=== PATIENT | female | born 1955 | race African-American/Black ===

== ENCOUNTER 2021-08-11 08:32 | Emergency (ER) | payer MEDICARE, OTHER ==
[~2021-08-11] VITALS: Ht 157.4 cm; Wt 113.3 kg
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
--- NOTE | 2021-08-11 08:47 | ED Cough/URI ---
General Chief Complaint: Respiratory Problems Stated Complaint: COUGH; SOB History of Present Illness Date Seen by Provider: Aug 11, 2021 Time Seen by Provider: 08:43 Initial Comments 66-year-old female presents with cough and "wheezing" patient reports that she is currently being treated for a longstanding sinus infection, she has been seen in ENT and they wanted to ask growth of her sinuses. That she is currently on antibiotics due to this longstanding sinus infection. Patient presents today because she has developed a little bit of cough and some upper airway congestion and "wheezing" no increasing shortness of breath. No change in fevers, chills, nausea or vomiting. Allergies and Home Medications Allergies Coded Allergies: Sulfa (Sulfonamide Antibiotics) (Verified Allergy, Unknown, 08/11/21) cefdinir (Verified Allergy, Unknown, 08/11/21) codeine (Verified Allergy, Unknown, 08/11/21) lactose (Verified Allergy, Unknown, 08/11/21) triamcinolone (Verified Allergy, Unknown, 08/11/21) Patient Home Medication List Home Medication List Reviewed: Yes Review of Systems Review of Systems Constitutional: see HPI; No chills, No fever EENTM: see HPI Respiratory: cough, phlegm; No short of breath; wheezing Cardiovascular: No chest pain, No palpitations Gastrointestinal: No abdominal pain, No diarrhea, No nausea, No vomiting Musculoskeletal: no symptoms reported Skin: no symptoms reported Psychiatric/Neurological: No Symptoms Reported Hematologic/Lymphatic: No Symptoms Reported Immunological/Allergic: no symptoms reported Physical Exam Vital Signs - First Documented 08/11/21 08:35 Temp 36.2 Pulse 90 Resp 20 B/P (MAP) 175/112 (133) Pulse Ox 94 O2 Delivery Room Air Capillary Refill : Height: '" Weight: lbs. oz. kg; BMI Method: General Appearance: obese HEENT: PERRL/EOMI Neck: full range of motion, supple Respiratory: lungs clear, normal breath sounds Cardiovascular: regular rate, rhythm, no edema Gastrointestinal: non tender, soft Extremities: normal range of motion, non-tender, normal inspection Neurologic/Psychiatric: alert, normal mood/affect, oriented x 3 Skin: normal color, warm/dry Progress/Results/Core Measures Suspected Sepsis SIRS Temperature: Pulse: Respiratory Rate: Laboratory Tests 08/11/21 09:00: White Blood Count 7.1 Blood Pressure / Mean: Laboratory Tests 08/11/21 09:00: Creatinine 1.10, Platelet Count 156, Total Bilirubin 0.9 Results/Orders Lab Results Laboratory Tests Test 08/11/21 08:45 08/11/21 09:00 Range/Units Influenza Type A Antigen NEGATIVE NEGATIVE Influenza Type B Antigen NEGATIVE NEGATIVE White Blood Count 7.1 4.3-11.0 10^3/uL Red Blood Count 4.09 3.80-5.11 10^6/uL Hemoglobin 12.6 11.5-16.0 g/dL Hematocrit 37 35-52 % Mean Corpuscular Volume 91 80-99 fL Mean Corpuscular Hemoglobin 31 25-34 pg Mean Corpuscular Hemoglobin Concent 34 32-36 g/dL Red Cell Distribution Width 13.2 10.0-14.5 % Platelet Count 156 130-400 10^3/uL Mean Platelet Volume 12.3 H 9.0-12.2 fL Immature Granulocyte % (Auto) 0 % Neutrophils (%) (Auto) 56 42-75 % Lymphocytes (%) (Auto) 30 12-44 % Monocytes (%) (Auto) 9 0-12 % Eosinophils (%) (Auto) 4 0-10 % Basophils (%) (Auto) 0 0-10 % Neutrophils # (Auto) 4.0 1.8-7.8 X 10^3 Lymphocytes # (Auto) 2.2 1.0-4.0 X 10^3 Monocytes # (Auto) 0.6 0.0-1.0 X 10^3 Eosinophils # (Auto) 0.3 0.0-0.3 10^3/uL Basophils # (Auto) 0.0 0.0-0.1 10^3/uL Immature Granulocyte # (Auto) 0.0 0.0-0.1 10^3/uL Sodium Level 140 135-145 MMOL/L Potassium Level 4.4 3.6-5.0 MMOL/L Chloride Level 104 98-107 MMOL/L Carbon Dioxide Level 26 21-32 MMOL/L Anion Gap 10 5-14 MMOL/L Blood Urea Nitrogen 15 7-18 MG/DL Creatinine 1.10 0.60-1.30 MG/DL Estimat Glomerular Filtration Rate 60 BUN/Creatinine Ratio 14 Glucose Level 176 H 70-105 MG/DL Calcium Level 9.3 8.5-10.1 MG/DL Corrected Calcium 9.5 8.5-10.1 MG/DL Total Bilirubin 0.9 0.1-1.0 MG/DL Aspartate Amino Transf (AST/SGOT) 21 5-34 U/L Alanine Aminotransferase (ALT/SGPT) 23 0-55 U/L Alkaline Phosphatase 129 40-136 U/L Total Protein 7.3 6.4-8.2 GM/DL Albumin 3.8 3.2-4.5 GM/DL My Orders Orders - BROCK BUSTILLOS Juliano DO Cbc With Automated Diff (08/11/21 08:45) Comprehensive Metabolic Panel (08/11/21 08:45) Covid 19 Inhouse Test (08/11/21 08:45) Influenza A & B Antigens (08/11/21 08:45) Isolation Central Supply Req (08/11/21 08:45) Chest 1 View Ap/Pa Only (08/11/21 08:45) Chest Pa/Lat (2 View) (08/11/21 09:19) Albuterol/Ipra Inhalation Soln (Duoneb I (08/11/21 09:45) Svn Small Volume Nebulizer (08/11/21 09:35) Medications Given in ED Current Medications Medications Dose Ordered Sig/Geoff Route Start Time Stop Time Status Last Admin Dose Admin Albuterol/ Ipratropium 3 ml ONCE ONCE INH 08/11/21 09:45 08/11/21 09:46 DC 08/11/21 09:53 3 ML Vital Signs/I&O 08/11/21 08:35 Temp 36.2 Pulse 90 Resp 20 B/P (MAP) 175/112 (133) Pulse Ox 94 O2 Delivery Room Air Capillary Refill : Progress Note : Progress Note Patient x-ray shows may be early bilateral patchy infiltrate. Patient's main complaint is nasal congestion. Her Covid test is currently pending. Her oxygen remained in the mid upper 90s throughout her stay. I discussed with her zjmi-kbk-aizllnf remedies to help with her congestion including Afrin for a couple days, trying Arlet, Breathe Right nasal strips. She is currently on Augmentin for her sinus infection so her symptoms are likely viral in nature. I also recommended she try [place] pot or similar nasal rinse. Patient stable and discharged home Diagnostic Imaging Diagonstic Imaging: Xray Plain Films/CT/US/NM/MRI: chest Comments Date of Exam:08/11/21 CHEST PA/LAT (2 VIEW) INDICATION: Cough. PA and lateral views were obtained. Comparison is made with prior examination from earlier the same day. FINDINGS: The heart size is normal. There are patchy bilateral pulmonary infiltrates. There is no pleural effusion or pneumothorax. The mediastinum is unremarkable. IMPRESSION: Patchy bilateral pulmonary infiltrates. An early pneumonia cannot be excluded. Recommend clinical correlation. Reviewed: Reviewed by Me, Reviewed/Discussed Departure Impression Primary Impression: Nasal congestion Additional Impression: Viral syndrome Disposition: HOME, SELF-CARE Condition: Stable Departure-Patient Inst. Referrals: DERRICK ROBERTSON DO (PCP) Primary Care Physician Patient Instructions: DR. CASTILLO-NASAL IRRIGATION, Sinusitis in Adults, Viral Syndrome (DC) Add. Discharge Instructions: Afrin nasal spray twice daily for 2 to 3 days Breathe Right nasal strips at night to help you sleep You have been provided information on Dr. Castillo sinus irrigation protocol, you may use a [place] pot or follow his recommendations. Continue your current antibiotics Yurx-flf-wkwpola Mucinex as directed on package Follow-up with your primary care provider in 3 to 4 days if symptoms are not improved All discharge instructions reviewed with patient and/or family. Voiced understanding. BROCK BUSTILLOS DO Aug 11, 2021 08:47
--- NOTE | 2021-08-11 09:01 | Diagnostic Imaging Report ---
INDICATION: Dyspnea and cough Portable AP view of the chest is obtained. There is no previous study for comparison. Overall heart size and pulmonary vascularity are within normal limits. There is apparent tortuosity or ectasia of the descending thoracic aorta. There is mild atelectasis and/or scarring in the left lung base. Focal density in the right suprahilar region may be merely due to superimposed osseous structures. There is mild right convexity curvature of the thoracic spine. IMPRESSION: Slight left basilar atelectasis and/or pneumonitis with suprahilar density on the right which could be due to superimposition. These findings could be reassessed on follow-up PA and lateral views of the chest for further assessment. Dictated by: Dictated on workstation # [id number]
[2021-08-11 09:25] LABS: HEMATOCRIT 37 % (35-52); HEMOGLOBIN 12.6 g/dL (11.5-16.0); MEAN CORPUSCULAR HEMOGLOBIN 31 pg (25-34); MEAN CORPUSCULAR HGB CONC 34 g/dL (32-36); MEAN CORPUSCULAR VOLUME 91 fL (80-99); MEAN PLATELET VOLUME 12.3 fL (9.0-12.2); PLATELET COUNT 156 10^3/uL (130-400); WHITE BLOOD COUNT 7.1 10^3/uL (4.3-11.0)
[2021-08-11 09:26] LABS: BASOPHILS % (AUTO) 0 % (0-10); EOSINOPHILS # (AUTO) 0.3 10^3/uL (0.0-0.3); EOSINOPHILS % (AUTO) 4 % (0-10); LYMPHOCYTES # (AUTO) 2.2 X 10^3 (1.0-4.0); LYMPHOCYTES % (AUTO) 30 % (12-44); MONOCYTES # (AUTO) 0.6 X 10^3 (0.0-1.0); MONOCYTES % (AUTO) 9 % (0-12); NEUTROPHILS % (AUTO) 56 % (42-75)
[2021-08-11 09:43] LABS: ALBUMIN 3.8 GM/DL (3.2-4.5); BILIRUBIN,TOTAL 0.9 MG/DL (0.1-1.0); CALCIUM 9.3 MG/DL (8.5-10.1); CREATININE SERUM 1.1 MG/DL (0.60-1.30); POTASSIUM 4.4 MMOL/L (3.6-5.0); TOTAL PROTEIN 7.3 GM/DL (6.4-8.2)
[2021-08-11] MEDS ORDERED: RT-ALBUTEROL/IPRATROPIUM 3 ML (DUONEB) VIAL INH ONE (09:45)
--- NOTE | 2021-08-11 09:54 | Diagnostic Imaging Report ---
INDICATION: Cough. PA and lateral views were obtained. Comparison is made with prior examination from earlier the same day. FINDINGS: The heart size is normal. There are patchy bilateral pulmonary infiltrates. There is no pleural effusion or pneumothorax. The mediastinum is unremarkable. IMPRESSION: Patchy bilateral pulmonary infiltrates. An early pneumonia cannot be excluded. Recommend clinical correlation. Dictated by: Dictated on workstation # [id number]
[2021-08-11 10:31] VITALS: BP 152/105
== END 2021-08-11 10:31 | disposition home or self-care (01) ==
LOC: EDUNIT# 08:32 → ER FS 08:33
DX: R09.81 Nasal congestion (principal); B34.9 Viral infection, unspecified; E66.9 Obesity, unspecified; Z20.822 Contact with and (suspected) exposure to COVID-19
CPT/HCPCS: 36415; 71045; 71046; 80053; 85025; 87636; 87804

== ENCOUNTER 2021-09-05 19:18 | Emergency (ER) | payer MEDICARE, OTHER ==
[~2021-09-05] VITALS: Ht 157 cm; Wt 108.0 kg
[2021-09-05 19:25] VITALS: BP 157/86
--- NOTE | 2021-09-05 19:46 | ED Respiratory ---
General Stated Complaint: CONGESTION,NAUSEA,COUGH,FEVER,HEADACHE Source: patient Exam Limitations: no limitations History of Present Illness Date Seen by Provider: Sep 05, 2021 Time Seen by Provider: 19:20 Initial Comments 66-year-old female with past medical history of hypertension and chronic sinusitis coming in due to nasal congestion, headache, cough, subjective fever a couple days ago, and loose stools. She says the nasal congestion has been ongoing for greater than 2 months and she sees an ENT physician for this. She had a CT of her sinuses and was diagnosed with sinusitis and had a course of Augmentin that she finished a couple weeks ago. This is her main complaint is the nasal congestion. She never really has a lot that comes out when she blows her nose, just feels stuffy. She says she feels short of breath when she tries to breathe through her nose because she feels the air does not move well, but is better when she tries to breathe through her mouth. Had a negative Covid test at the end of July and has not been tested since. Does her symptoms come and go but been worsening again over the past week. Denies any chest pain, nausea, vomiting, abdominal pain, dysuria, weakness, numbness, rash, or any other concerns. Focused history in regards to a pulmonary embolism, denies any prior history of blood clots, no recent surgery, no recent travel, does not take any type of hormone, no hemoptysis, no leg swelling or pain. The only medicine she takes that is prescribed at this time is metoprolol. Allergies and Home Medications Allergies Coded Allergies: Sulfa (Sulfonamide Antibiotics) (Verified Allergy, Unknown, 08/11/21) cefdinir (Verified Allergy, Unknown, 08/11/21) codeine (Verified Allergy, Unknown, 08/11/21) lactose (Verified Allergy, Unknown, 08/11/21) triamcinolone (Verified Allergy, Unknown, 08/11/21) Patient Home Medication List Home Medication List Reviewed: Yes Review of Systems Review of Systems Constitutional: fever (subjective, last was 3 days ago) EENTM: nose congestion; No throat pain Respiratory: cough, short of breath Cardiovascular: No chest pain Gastrointestinal: No abdominal pain; diarrhea; No nausea, No vomiting Genitourinary: no symptoms reported Musculoskeletal: no symptoms reported Skin: no symptoms reported Psychiatric/Neurological: No Symptoms Reported Hematologic/Lymphatic: No Symptoms Reported Immunological/Allergic: no symptoms reported All Other Systems Reviewed Negative Unless Noted: Yes Past Qcvabwc-Hfzgiz-Wsivph Hx Patient Social History Tobacco Use?: No Substance use?: No Alcohol Use?: No Immunizations Up To Date First/Initial COVID19 Vaccinat: 12/12/20 Second COVID19 Vaccination Skinny: 01/19/21 Past Medical History Surgery/Hospitalization HX: HTN; Arthritis; ; Cyst removed from right ear; arthroscopy; Seasonal allergies Surgeries: Yes Section Physical Exam Vital Signs - First Documented 09/05/21 19:25 Temp 36.8 Pulse 107 Resp 26 B/P (MAP) 157/86 (109) Pulse Ox 98 O2 Delivery Room Air Capillary Refill : Height: '" Weight: lbs. oz. kg; 45.00 BMI Method: General Appearance: WD/WN, no apparent distress Eyes: Bilateral Eye Normal Inspection HEENT: PERRL/EOMI, normal ENT inspection, pharynx normal Neck: non-tender, full range of motion, supple, normal inspection Respiratory: chest non-tender, lungs clear, normal breath sounds, no respiratory distress, no accessory muscle use Cardiovascular: regular rate, rhythm, no edema, no murmur Gastrointestinal: normal bowel sounds, non tender, soft; No distended, No guarding, No rebound Extremities: normal range of motion, non-tender, normal inspection, no pedal edema, no calf tenderness, normal capillary refill Neurologic/Psychiatric: no motor/sensory deficits, alert, normal mood/affect Skin: normal color, warm/dry Lymphatic: no adenopathy Progress/Results/Core Measures Suspected Sepsis SIRS Temperature: Pulse: Respiratory Rate: Laboratory Tests 09/05/21 19:45: White Blood Count 7.4 Blood Pressure / Mean: Laboratory Tests 09/05/21 19:45: Creatinine 1.15, Platelet Count 183, Total Bilirubin 0.8 Results/Orders Lab Results Laboratory Tests Test 09/05/21 19:40 09/05/21 19:45 Range/Units Influenza Type A Antigen NEGATIVE NEGATIVE Influenza Type B Antigen NEGATIVE NEGATIVE White Blood Count 7.4 4.3-11.0 10^3/uL Red Blood Count 4.12 3.80-5.11 10^6/uL Hemoglobin 12.8 11.5-16.0 g/dL Hematocrit 38 35-52 % Mean Corpuscular Volume 92 80-99 fL Mean Corpuscular Hemoglobin 31 25-34 pg Mean Corpuscular Hemoglobin Concent 34 32-36 g/dL Red Cell Distribution Width 13.5 10.0-14.5 % Platelet Count 183 130-400 10^3/uL Mean Platelet Volume 12.3 H 9.0-12.2 fL Immature Granulocyte % (Auto) 0 % Neutrophils (%) (Auto) 72 42-75 % Lymphocytes (%) (Auto) 21 12-44 % Monocytes (%) (Auto) 7 0-12 % Eosinophils (%) (Auto) 0 0-10 % Basophils (%) (Auto) 0 0-10 % Neutrophils # (Auto) 5.3 1.8-7.8 X 10^3 Lymphocytes # (Auto) 1.5 1.0-4.0 X 10^3 Monocytes # (Auto) 0.5 0.0-1.0 X 10^3 Eosinophils # (Auto) 0.0 0.0-0.3 10^3/uL Basophils # (Auto) 0.0 0.0-0.1 10^3/uL Immature Granulocyte # (Auto) 0.0 0.0-0.1 10^3/uL Neutrophils % (Manual) 74 % Lymphocytes % (Manual) 17 % Monocytes % (Manual) 8 % Eosinophils % (Manual) 0 % Basophils % (Manual) 1 % Band Neutrophils 0 % Sodium Level 139 135-145 MMOL/L Potassium Level 4.2 3.6-5.0 MMOL/L Chloride Level 102 98-107 MMOL/L Carbon Dioxide Level 25 21-32 MMOL/L Anion Gap 12 5-14 MMOL/L Blood Urea Nitrogen 16 7-18 MG/DL Creatinine 1.15 0.60-1.30 MG/DL Estimat Glomerular Filtration Rate 52 BUN/Creatinine Ratio 14 Glucose Level 140 H 70-105 MG/DL Calcium Level 9.6 8.5-10.1 MG/DL Corrected Calcium 9.5 8.5-10.1 MG/DL Total Bilirubin 0.8 0.1-1.0 MG/DL Aspartate Amino Transf (AST/SGOT) 21 5-34 U/L Alanine Aminotransferase (ALT/SGPT) 26 0-55 U/L Alkaline Phosphatase 131 40-136 U/L Troponin I < 0.30 <0.30 NG/ML Pro-B-Type Natriuretic Peptide 63.5 <75.0 PG/ML Total Protein 7.2 6.4-8.2 GM/DL Albumin 4.1 3.2-4.5 GM/DL My Orders Orders - JOSIE GERARD MD Cbc With Automated Diff (09/05/21 19:38) Comprehensive Metabolic Panel (09/05/21 19:38) Probnp Fs (09/05/21 19:38) Troponin I Fs (09/05/21 19:38) Influenza A & B Antigens (09/05/21 19:38) Chest 1 View Ap/Pa Only (09/05/21 19:38) Ed Iv/Invasive Line Start (09/05/21 19:38) Ekg Tracing (09/05/21 19:38) Covid 19 Inhouse Test (09/05/21 19:38) Manual Differential (09/05/21 19:45) Vital Signs/I&O 09/05/21 09/05/21 09/05/21 19:25 20:04 20:16 Temp 36.8 Pulse 107 97 Resp 26 20 B/P (MAP) 157/86 (109) 171/92 Pulse Ox 98 98 O2 Delivery Room Air Room Air Capillary Refill : Progress Note : Progress Note 66-year-old female with above history coming in mostly due to nasal congestion and other URI-like symptoms. ABCs were intact and vitals were stable on presentation. Physical exam with clear lung sounds and oxygen saturation greater than 98%. An IV was placed and basic labs were obtained including cardiac biomarkers due to the shortness of breath she is describing. Troponin is undetectable, proBNP is normal, and other labs are essentially unremarkable. Chest x-ray is clear with no acute abnormalities. EKG without acute ischemic changes. At this point it is unlikely that this is an atypical ACS causing her shortness of breath. The chronic congestion could be a chronic sinusitis, and she already follows with an ENT physician for this. I will recommend she continue to follow with him. No clinical signs of bacterial sinus infection at this time so we will hold off on antibiotics. Flu testing is negative and Covid testing is pending. Overall she is well-appearing and vitals remain well-appearing with frequent reassessment. I believe she is stable for discharge with strict return precautions. ECG Initial ECG Impression Date: Sep 05, 2021 Initial ECG Impression Time: 19:49 Initial ECG Rate: 103 Initial ECG Rhythm: S.Tach Comment Narrow QRS, borderline left axis deviation, no significant ST changes or T wave abnormalities Diagnostic Imaging Diagonstic Imaging: Xray Plain Films/CT/US/NM/MRI: chest Comments [facility] [place], [place] NAME: ONEIL FARRELL [facility] REC#: [id number] PT STATUS: REG ER : 1955 PHYSICIAN: JOSIE GERARD MD ADMIT DATE: 09/05/21/ER FS Draft Date of Exam:09/05/21 CHEST 1 VIEW AP/PA ONLY INDICATION: Shortness of breath COMPARISON: 08/11/2021 FINDINGS: Patchy bilateral pulmonary infiltrates are less conspicuous than on prior. There has been no adverse development. No effusion or pneumothorax. IMPRESSION: Improvements in bilateral infiltrates with no adverse change. Dictated on workstation # [id number] Dict: 09/05/211955 Trans: 09/05/212020 [facility] [id number] Interpreted by: HETAL BORJA Electronically signed by: Departure Impression Primary Impression: Nasal congestion Additional Impression: URI (upper respiratory infection) Qualified Codes: J06.9 - Acute upper respiratory infection, unspecified Disposition: HOME, SELF-CARE Condition: Stable Departure-Patient Inst. Decision time for Depature: 20:40 Referrals: DERRICK ROBERTSON DO (PCP/Family) Primary Care Physician Patient Instructions: Viral Upper Respiratory Infection, Adult (DC) Add. Discharge Instructions: You were seen in the emergency department for your congestion with your other viral-like symptoms. You likely do have some type of virus that is causing this. Your flu test is negative, Covid test is pending. It likely is one of the many viruses that are spreading right now. You can try Flonase nasal spray which is slightly different than the Nasacort that you used previously. That is the biggest recommendation by ENT surgeons for sinus congestion. Your Covid test will come back likely tomorrow, but I suspect it is negative. I recommend trying saline rinses as well in your nose to try to clear it up. Scripts Fluticasone Propionate (Flonase Allergy Relief) 9.9 Ml [place].susp 2 SPRAY NS DAILY for 30 Days, #1 EACH 2 SPRAYS PER NOSTRIL DAILY X 2 DAYS THEN 1 SPRAY DAILY Prov: JOSIE GERARD MD 09/05/21 JOSIE GERARD MD Sep 05, 2021 19:45
[2021-09-05 19:58] LABS: HEMATOCRIT 38 % (35-52); HEMOGLOBIN 12.8 g/dL (11.5-16.0); MEAN CORPUSCULAR HEMOGLOBIN 31 pg (25-34); MEAN CORPUSCULAR VOLUME 92 fL (80-99)
[2021-09-05 19:59] LABS: BASOPHILS % (AUTO) 0 % (0-10); LYMPHOCYTES # (AUTO) 1.5 X 10^3 (1.0-4.0); MEAN CORPUSCULAR HGB CONC 34 g/dL (32-36); MONOCYTES # (AUTO) 0.5 X 10^3 (0.0-1.0); MONOCYTES % (AUTO) 7 % (0-12)
[2021-09-05 20:20] LABS: BAND NEUTROPHILS 0 %; BASOPHILS % (MANUAL) 1 %; EOSINOPHILS % (MANUAL) 0 %; LYMPHOCYTES % (MANUAL) 17 %; MONOCYTES % (MANUAL) 8 %; NEUTROPHILS % (MANUAL) 74 %
[2021-09-05 20:21] LABS: WHITE BLOOD COUNT 7.4 10^3/uL (4.3-11.0)
--- NOTE | 2021-09-05 20:21 | Diagnostic Imaging Report ---
INDICATION: Shortness of breath COMPARISON: 08/11/2021 FINDINGS: Patchy bilateral pulmonary infiltrates are less conspicuous than on prior. There has been no adverse development. No effusion or pneumothorax. IMPRESSION: Improvements in bilateral infiltrates with no adverse change. Dictated by: Dictated on workstation # [id number]
[2021-09-05 20:22] LABS: MEAN PLATELET VOLUME 12.3 fL (9.0-12.2); PLATELET COUNT 183 10^3/uL (130-400)
[2021-09-05 20:23] LABS: EOSINOPHILS % (AUTO) 0 % (0-10); LYMPHOCYTES % (AUTO) 21 % (12-44); NEUTROPHILS % (AUTO) 72 % (42-75)
[2021-09-05 20:24] LABS: NEUTROPHILS # (AUTO) 5.3 X 10^3 (1.8-7.8)
[2021-09-05 20:25] LABS: SODIUM 139 MMOL/L (135-145)
[2021-09-05 20:26] LABS: ALANINE AMINOTRANSFERASE 26 U/L (0-55); ALBUMIN 4.1 GM/DL (3.2-4.5); ALKALINE PHOSPHATASE 131 U/L (40-136); BILIRUBIN,TOTAL 0.8 MG/DL (0.1-1.0); BUN/CREATININE RATIO 14; CALCIUM 9.6 MG/DL (8.5-10.1); CARBON DIOXIDE 25 MMOL/L (21-32); CHLORIDE 102 MMOL/L (98-107); CREATININE SERUM 1.15 MG/DL (0.60-1.30); GFR ESTIMATED 52; GLUCOSE 140 MG/DL (70-105); POTASSIUM 4.2 MMOL/L (3.6-5.0); TOTAL PROTEIN 7.2 GM/DL (6.4-8.2)
[2021-09-05] MEDS ORDERED: FLUT9.9S NS (20:42)
== END 2021-09-05 20:55 | disposition home or self-care (01) ==
LOC: EDUNIT# 19:18 → ER FS 19:19
DX: R09.81 Nasal congestion (principal); J06.9 Acute upper respiratory infection, unspecified; I10 Essential (primary) hypertension; Z20.822 Contact with and (suspected) exposure to COVID-19
CPT/HCPCS: 36415; 71045; 80053; 83880; 84484; 85007; 85027; 87635; 87636; 87804

== ENCOUNTER 2022-01-22 07:39 | Emergency (ER) | payer MEDICARE, OTHER ==
[~2022-01-22 07:39] MED LIST: FLUT9.9S NS
--- NOTE | 2022-01-22 07:52 | ED General ---
General Chief Complaint: Dizziness/Syncope Stated Complaint: DOUBLE VISION; DIZZINESS History of Present Illness Date Seen by Provider: Jan 22, 2022 Time Seen by Provider: 07:49 Initial Comments 66-year-old female reports that when she woke up around 7 she was having double vision. That it is resolved however she still mild nauseated has a little bit of a mild headache. Patient denies any focal weakness she denies any chest pain, shortness of breath, fever, chills, urinary symptoms or any other sympto ms. Allergies and Home Medications Allergies Coded Allergies: Sulfa (Sulfonamide Antibiotics) (Verified Allergy, Unknown, 08/11/21) cefdinir (Verified Allergy, Unknown, 08/11/21) codeine (Verified Allergy, Unknown, 08/11/21) lactose (Verified Allergy, Unknown, 08/11/21) triamcinolone (Verified Allergy, Unknown, 08/11/21) Patient Home Medication List Home Medication List Reviewed: Yes Fluticasone Propionate (Flonase Allergy Relief) 9.9 Ml [place].susp, 2 SPRAY NS DAILY Prescribed by: JOSIE GERARD on 09/05/212041 Review of Systems Review of Systems Constitutional: No chills; dizziness; No fever EENTM: double vision (Resolved); No throat pain Respiratory: No cough, No short of breath Cardiovascular: No chest pain, No palpitations, No syncope Gastrointestinal: No abdominal pain, No diarrhea; nausea; No vomiting Genitourinary: no symptoms reported Musculoskeletal: no symptoms reported Skin: no symptoms reported Psychiatric/Neurological: No Symptoms Reported Hematologic/Lymphatic: No Symptoms Reported Past Gyivzai-Czeukf-Hyhhpe Hx Immunizations Up To Date First/Initial COVID19 Vaccinat: 12-31 Second COVID19 Vaccination Skinny: 01-31 Past Medical History Surgery/Hospitalization HX: HTN; Arthritis; ; Cyst removed from right ear; arthroscopy; Seasonal allergies Surgeries: Yes Section Physical Exam Vital Signs Vital Signs - First Documented 01/22/22 07:45 Temp 35.8 Pulse 63 Resp 16 B/P (MAP) 150/80 (103) Pulse Ox 96 O2 Delivery Room Air Capillary Refill : Height, Weight, BMI Height: '" Weight: lbs. oz. kg; 43.00 BMI Method: General Appearance: No Apparent Distress, WD/WN, Obese (Morbid) HEENT: PERRL/EOMI, Moist Mucous Membranes Neck: Non Tender, Supple Respiratory: Lungs Clear, Normal Breath Sounds Cardiovascular: Regular Rate, Rhythm, No Edema Gastrointestinal: Non Tender, Soft Extremity: Normal Capillary Refill, Normal Inspection, Normal Range of Motion Neurologic/Psychiatric: Alert, Oriented x3, No Motor/Sensory Deficits, Normal Mood/Affect, tree faller II-XII Norm as Tested Skin: Normal Color, Warm/Dry Progress/Results/Core Measures Suspected Sepsis SIRS Temperature: Pulse: Respiratory Rate: Laboratory Tests 01/22/22 07:55: White Blood Count 8.0 Blood Pressure / Mean: Laboratory Tests 01/22/22 07:55: Creatinine 1.42H, Platelet Count 155, Total Bilirubin 0.5 Results/Orders Lab Results Laboratory Tests Test 01/22/22 07:55 01/22/22 08:19 Range/Units White Blood Count 8.0 4.3-11.0 10^3/uL Red Blood Count 4.10 3.80-5.11 10^6/uL Hemoglobin 12.8 11.5-16.0 g/dL Hematocrit 37 35-52 % Mean Corpuscular Volume 91 80-99 fL Mean Corpuscular Hemoglobin 31 25-34 pg Mean Corpuscular Hemoglobin Concent 35 32-36 g/dL Red Cell Distribution Width 14.4 10.0-14.5 % Platelet Count 155 130-400 10^3/uL Mean Platelet Volume 12.8 H 9.0-12.2 fL Immature Granulocyte % (Auto) 0 % Neutrophils (%) (Auto) 47 42-75 % Lymphocytes (%) (Auto) 44 12-44 % Monocytes (%) (Auto) 7 0-12 % Eosinophils (%) (Auto) 2 0-10 % Basophils (%) (Auto) 1 0-10 % Neutrophils # (Auto) 3.7 1.8-7.8 10^3/uL Lymphocytes # (Auto) 3.5 1.0-4.0 10^3/uL Monocytes # (Auto) 0.6 0.0-1.0 10^3/uL Eosinophils # (Auto) 0.1 0.0-0.3 10^3/uL Basophils # (Auto) 0.1 0.0-0.1 10^3/uL Immature Granulocyte # (Auto) 0.0 0.0-0.1 10^3/uL Sodium Level 139 135-145 MMOL/L Potassium Level 4.4 3.6-5.0 MMOL/L Chloride Level 105 98-107 MMOL/L Carbon Dioxide Level 23 21-32 MMOL/L Anion Gap 11 5-14 MMOL/L Blood Urea Nitrogen 31 H 7-18 MG/DL Creatinine 1.42 H 0.60-1.30 MG/DL Estimat Glomerular Filtration Rate 40 BUN/Creatinine Ratio 22 Glucose Level 131 H 70-105 MG/DL Calcium Level 9.7 8.5-10.1 MG/DL Corrected Calcium 9.5 8.5-10.1 MG/DL Magnesium Level 1.8 1.6-2.4 MG/DL Total Bilirubin 0.5 0.1-1.0 MG/DL Aspartate Amino Transf (AST/SGOT) 15 5-34 U/L Alanine Aminotransferase (ALT/SGPT) 19 0-55 U/L Alkaline Phosphatase 112 40-136 U/L C-Reactive Protein 0.30 <0.50 MG/DL Total Protein 7.1 6.4-8.2 GM/DL Albumin 4.3 3.2-4.5 GM/DL Urine Color YELLOW Urine Clarity SLIGHTLY CLOUDY Urine pH 6.0 5-9 Urine Specific [place] 1.010 L 1.016-1.022 Urine Protein NEGATIVE NEGATIVE Urine Glucose (UA) NEGATIVE NEGATIVE Urine Ketones NEGATIVE NEGATIVE Urine Nitrite NEGATIVE NEGATIVE Urine Bilirubin NEGATIVE NEGATIVE Urine Urobilinogen 0.2 < = 1.0 MG/DL Urine Leukocyte Esterase NEGATIVE NEGATIVE Urine RBC (Auto) NEGATIVE NEGATIVE Urine RBC 5-10 H /HPF Urine WBC 10-25 H /HPF Urine Squamous Epithelial Cells 25-50 H /HPF Urine Crystals NONE /LPF Urine Bacteria MODERATE H /HPF Urine Casts NONE /LPF Urine Mucus NEGATIVE /LPF Urine Culture Indicated NO My Orders Orders - BUSTILLOS,BROCK L DO Cbc With Automated Diff (01/22/22 07:54) Comprehensive Metabolic Panel (01/22/22 07:54) Magnesium (01/22/22 07:54) Ua Culture If Indicated (01/22/22 07:54) Crp Fs (01/22/22 07:54) Ct Head Wo (01/22/22 07:54) Ondansetron Injection (Zofran Injectio (01/22/22 08:00) Ekg Tracing (01/22/22 07:58) Monitor-Rhythm Ecg Trace Only (01/22/22 07:58) Ns Iv 1000 Ml (Sodium Chloride 0.9%) (01/22/22 08:20) Ct Angio Head/Neck (01/22/22 08:25) Iohexol Injection (Omnipaque 350 Mg/Ml 1 (01/22/22 08:30) Received Contrast (Hold Metformin- Contr (01/22/22 08:30) Sodium Chloride Flush (Catheter Flush Sy (01/22/22 08:30) Ns (Ivpb) (Sodium Chloride 0.9% Ivpb Bag (01/22/22 08:30) Meclizine Tablet (Antivert Tablet) (01/22/22 09:45) Medications Given in ED Current Medications Medications Dose Ordered Sig/Geoff Route Start Time Stop Time Status Last Admin Dose Admin Iohexol 75 ml ONCE ONCE IV 01/22/22 08:30 01/22/22 08:31 DC 01/22/22 08:45 75 ML Meclizine HCl 25 mg ONCE ONCE PO 01/22/22 09:45 01/22/22 09:46 DC 01/22/22 09:46 25 MG Ondansetron HCl 4 mg ONCE ONCE IVP 01/22/22 08:00 01/22/22 08:01 DC 01/22/22 08:00 4 MG Sodium Chloride 10 ml NEEDED PRN IV 01/22/22 08:30 01/22/22 08:45 10 ML Sodium Chloride 100 ml ONCE ONCE IV 01/22/22 08:30 01/22/22 08:31 DC 01/22/22 08:45 100 ML Vital Signs/I&O 01/22/22 07:45 Temp 35.8 Pulse 63 Resp 16 B/P (MAP) 150/80 (103) Pulse Ox 96 O2 Delivery Room Air Capillary Refill : Progress Note : Progress Note Patient with no physical findings on exam to indicate stroke. Patient had a CT that was unequivocal for possible occipital edema, CTA was performed and was negative. Patient does have some mild increase in her BUN and creatinine with likely some acute renal insufficiency likely due to decreased fluid, this could possibly due to may be elevated blood sugar poor p.o. intake or may be early viral syndrome. Patient stable, discharged home. I did recommend she follow-up with her primary care provider next week for continued outpatient evaluation as needed ECG Initial ECG Impression Date: Jan 22, 2022 Initial ECG Impression Time: 08:04 Initial ECG Rate: 59 Initial ECG Rhythm: Normal Sinus Initial ECG Intervals incomplete RBBB, no st elevation Initial ECG Impression: Nonspecific Changes Diagnostic Imaging Diagonstic Imaging: CT Plain Films/CT/US/NM/MRI: head Comments Date of Exam:01/22/22 CT HEAD WO PROCEDURE: CT head without contrast. TECHNIQUE: Multiple contiguous axial images were obtained through the brain without the use of intravenous contrast. Auto Exposure Controls were utilized during the CT exam to meet ALARA standards for radiation dose reduction. INDICATION: 66-year-old female, dizziness, headache, nausea, diplopia since waking up this morning. CORRELATION STUDY: None FINDINGS: The ventricles appearing age appropriate. Scattered areas of decreased attenuation likely owing to chronic small vessel ischemic disease. There is a subtle, questionable area of slight asymmetric decreased attenuation along the peripheral margins of the left occipital lobe compared to the right. No intracranial hemorrhage. Basal ganglia calcifications. No hyperdense intrarenal vascular sign. Bony calvarium is intact. Visualized paranasal sinuses and mastoid air cells clear. IMPRESSION: 1. Question slight asymmetric low-attenuation of the left occipital lobe. Possibly of early edema is not excluded. Short-term follow-up repeat imaging or correlation with MRI is recommended. Diagonstic Imaging: CT Comments INDICATION: 66-year-old female, dizziness, double vision, headache since waking up this morning. COMPARISON: CT head 01/22/2022 FINDINGS: CTA NECK: Aorta: Aortic arch is limited in evaluation with artifact present. Does appear relatively normal, with standard three vessel branching pattern. Right Common/Internal/External Carotid Artery: Right common carotid artery is tortuous and some folding on itself but patent. Carotid bifurcation unremarkable. The internal and external carotid arteries are patent. The internal carotid arteries patent to the level of skull base. No large vessel occlusion or significant stenosis. Left Common/Internal/External Carotid Artery: Tortuous course left common carotid artery. Along the horizontal portion, there does appear to be slight asymmetric filling defect could reflect mild plaque. No significant stenosis. External carotid arteries patent. The internal carotid artery is also markedly tortuous some folding on itself but patent to the skull base. Vertebral arteries: Vertebral arteries are fairly small caliber. Perhaps slightly more dominant right vertebral artery. Tortuous course of vertebral arteries but overall appear to be patent without significant stenosis of the skull base, terminating into the basilar artery. Non-vascular: No concerning cervical lymphadenopathy. Mild groundglass opacities at the lung apices. CTA HEAD: Anterior Circulation: Mild atherosclerotic calcification at the bilateral internal carotid arteries without significant stenosis. The bilateral middle cerebral arteries are patent and without stenosis. The anterior cerebral arteries are patent and without stenosis. Posterior Circulation: The vertebral arteries are fairly diminutive intracranially demonstrated scattered atherosclerotic calcification. The basilar artery is also very diminutive with some areas only wispy-like contrast filling of the basilar artery. Bilateral posterior cerebral arteries appear to be predominantly persistent origin. Post Contrast Head: No concerning enhancement on delayed post-contrast imaging. IMPRESSION: 1. CTA of the neck demonstrates fairly tortuous course of the bilateral common carotid arteries as well as internal carotid artery. Does appear to be mild asymmetric plaque-like formation left common carotid artery. No evidence for large vessel occlusion. 2. There is diminutive bilateral vertebral arteries within the neck as well as overall very small vertebrobasilar system with a somewhat wispy-like appearance about the distal vertebral arteries as well as basilar artery. Posterior cerebral arteries predominantly supplied via the anterior circulation with origin. 3. CTA [place] otherwise unremarkable. Departure Impression Primary Impression: Dizziness Disposition: 01 HOME, SELF-CARE Condition: Stable Departure-Patient Inst. Referrals: SELF,RACHEL RHODES (PCP) Primary Care Physician Patient Instructions: Dizziness, Adult ED Add. Discharge Instructions: Please follow-up with your primary care provider next week for continued evaluation and and recheck of your symptoms You may use [id number] meclizine/Antivert as directed on package Drink plenty of fluids All discharge instructions reviewed with patient and/or family. Voiced understanding. BROCK BUSTILLOS DO Jan 22, 2022 07:52
[2022-01-22 07:59] LABS: BASOPHILS # (AUTO) 0.1 10^3/uL (0.0-0.1); BASOPHILS % (AUTO) 1 % (0-10); EOSINOPHILS # (AUTO) 0.1 10^3/uL (0.0-0.3); EOSINOPHILS % (AUTO) 2 % (0-10); HEMATOCRIT 37 % (35-52); HEMOGLOBIN 12.8 g/dL (11.5-16.0); LYMPHOCYTES # (AUTO) 3.5 10^3/uL (1.0-4.0); LYMPHOCYTES % (AUTO) 44 % (12-44); MEAN CORPUSCULAR HEMOGLOBIN 31 pg (25-34); MEAN CORPUSCULAR HGB CONC 35 g/dL (32-36); MEAN CORPUSCULAR VOLUME 91 fL (80-99); MEAN PLATELET VOLUME 12.8 fL (9.0-12.2); MONOCYTES # (AUTO) 0.6 10^3/uL (0.0-1.0); MONOCYTES % (AUTO) 7 % (0-12); NEUTROPHILS # (AUTO) 3.7 10^3/uL (1.8-7.8); NEUTROPHILS % (AUTO) 47 % (42-75); PLATELET COUNT 155 10^3/uL (130-400)
[2022-01-22] MEDS ORDERED: ONDANSETRON 4 MG/2 ML (SDV) Z0FRAN IVP ONE (08:00)
[2022-01-22 08:18] LABS: POTASSIUM 4.4 MMOL/L (3.6-5.0)
[2022-01-22 08:19] LABS: ALBUMIN 4.3 GM/DL (3.2-4.5); BILIRUBIN,TOTAL 0.5 MG/DL (0.1-1.0); CALCIUM 9.7 MG/DL (8.5-10.1); CREATININE SERUM 1.42 MG/DL (0.60-1.30); MAGNESIUM 1.8 MG/DL (1.6-2.4); TOTAL PROTEIN 7.1 GM/DL (6.4-8.2)
[2022-01-22] MEDS ORDERED: NS IV 1000 ML 1,000 ML IV STA (08:20)
[2022-01-22 08:25] LABS: BILIRUBIN,URINE NEGATIVE (NEGATIVE); COLOR,URINE YELLOW; GLUCOSE, URINE (UA) NEGATIVE (NEGATIVE); KETONES,URINE NEGATIVE (NEGATIVE); LEUKOCYTE ESTERASE ,URINE NEGATIVE (NEGATIVE); NITRITE,URINE NEGATIVE (NEGATIVE); PROTEIN,URINE NEGATIVE (NEGATIVE)
[2022-01-22 08:29] LABS: BACTERIA,URINE MODERATE /HPF; CLARITY,URINE SLIGHTLY CLOUDY; SQUAMOUS EPITHELIAL CELL,UR 25-50 /HPF
[2022-01-22] MEDS ORDERED: IOHEXOL 350 MG/ML 100 ML (OMNIPAQUE 350) VIAL IV ONE (08:30)
[2022-01-22] MEDS ORDERED: HOLD METFORMIN - RECEIVED CONTRAST 20 ML VIAL IV SCH (08:30)
[2022-01-22] MEDS ORDERED: NS 100 ML (IVPB) BAG IV ONE (08:30)
[2022-01-22] MEDS ORDERED: CATHETER FLUSH 10 ML SYR IV PRN (08:30)
--- NOTE | 2022-01-22 08:36 | Diagnostic Imaging Report ---
PROCEDURE: CT head without contrast. TECHNIQUE: Multiple contiguous axial images were obtained through the brain without the use of intravenous contrast. Auto Exposure Controls were utilized during the CT exam to meet ALARA standards for radiation dose reduction. INDICATION: 66-year-old female, dizziness, headache, nausea, diplopia since waking up this morning. CORRELATION STUDY: None FINDINGS: The ventricles appearing age appropriate. Scattered areas of decreased attenuation likely owing to chronic small vessel ischemic disease. There is a subtle, questionable area of slight asymmetric decreased attenuation along the peripheral margins of the left occipital lobe compared to the right. No intracranial hemorrhage. Basal ganglia calcifications. No hyperdense intrarenal vascular sign. Bony calvarium is intact. Visualized paranasal sinuses and mastoid air cells clear. IMPRESSION: 1. Question slight asymmetric low-attenuation of the left occipital lobe. Possibly of early edema is not excluded. Short-term follow-up repeat imaging or correlation with MRI is recommended. Telephone call has been made to the [facility], 8:20 AM. Dictated by: Dictated on workstation # [id number]
--- NOTE | 2022-01-22 09:17 | Diagnostic Imaging Report ---
PROCEDURE: CT angiography of the head and CT angiography of the neck with and without contrast. TECHNIQUE: Contiguous noncontrast images were obtained from the skull base through the vertex. After intravenous contrast administration, helical CT angiography of the neck was performed. Source data was reformatted into 3D MIP projections. Delayed post contrast acquisition was also obtained. Auto Exposure Controls were utilized during the CT exam to meet ALARA standards for radiation dose reduction. INDICATION: 66-year-old female, dizziness, double vision, headache since waking up this morning. COMPARISON: CT head 01/22/2022 FINDINGS: CTA NECK: Aorta: Aortic arch is limited in evaluation with artifact present. Does appear relatively normal, with standard three vessel branching pattern. Right Common/Internal/External Carotid Artery: Right common carotid artery is tortuous and some folding on itself but patent. Carotid bifurcation unremarkable. The internal and external carotid arteries are patent. The internal carotid arteries patent to the level of skull base. No large vessel occlusion or significant stenosis. Left Common/Internal/External Carotid Artery: Tortuous course left common carotid artery. Along the horizontal portion, there does appear to be slight asymmetric filling defect could reflect mild plaque. No significant stenosis. External carotid arteries patent. The internal carotid artery is also markedly tortuous some folding on itself but patent to the skull base. Vertebral arteries: Vertebral arteries are fairly small caliber. Perhaps slightly more dominant right vertebral artery. Tortuous course of vertebral arteries but overall appear to be patent without significant stenosis of the skull base, terminating into the basilar artery. Non-vascular: No concerning cervical lymphadenopathy. Mild groundglass opacities at the lung apices. CTA HEAD: Anterior Circulation: Mild atherosclerotic calcification at the bilateral internal carotid arteries without significant stenosis. The bilateral middle cerebral arteries are patent and without stenosis. The anterior cerebral arteries are patent and without stenosis. Posterior Circulation: The vertebral arteries are fairly diminutive intracranially demonstrated scattered atherosclerotic calcification. The basilar artery is also very diminutive with some areas only wispy-like contrast filling of the basilar artery. Bilateral posterior cerebral arteries appear to be predominantly persistent origin. Post Contrast Head: No concerning enhancement on delayed post-contrast imaging. IMPRESSION: 1. CTA of the neck demonstrates fairly tortuous course of the bilateral common carotid arteries as well as internal carotid artery. Does appear to be mild asymmetric plaque-like formation left common carotid artery. No evidence for large vessel occlusion. 2. There is diminutive bilateral vertebral arteries within the neck as well as overall very small vertebrobasilar system with a somewhat wispy-like appearance about the distal vertebral arteries as well as basilar artery. Posterior cerebral arteries predominantly supplied via the anterior circulation with origin. 3. CTA [place] otherwise unremarkable. Dictated by: Dictated on workstation # [id number]
[2022-01-22] MEDS ORDERED: MECLIZINE 25 MG (ANTIVERT) TAB PO ONE (09:45)
[2022-01-22 10:05] VITALS: BP 153/69
== END 2022-01-22 10:07 | disposition home or self-care (01) ==
LOC: EDUNIT# 07:39 → ER FS 07:40
DX: R42 Dizziness and giddiness (principal)
CPT/HCPCS: 36415; 70450; 70496; 70498; 80053; 81000; 83735; 85025; 86141; 93005; 93041; Q9967

== ENCOUNTER 2022-06-03 09:03 | Emergency (ER) | payer MEDICARE, OTHER ==
[2022-06-03] MEDS ORDERED: fentaNYL INJ 100 MCG/2 ML AMP IM ONE (09:45)
--- NOTE | 2022-06-03 10:33 | ED Upper Extremity ---
General Chief Complaint: Lower Extremity Stated Complaint: LT ARM INJ Nursing Triage Note: PT FELL THIS AM AFTER TRIPPING OVER A RUNNER RUG. SHE HAS LEFET ELBOW PAIN AND LIMITED MOVEMENT. Source: patient, family Exam Limitations: no limitations History of Present Illness Date Seen by Provider: Jun 03, 2022 Time Seen by Provider: 09:30 Initial Comments 67-year-old right-handed female patient with history of hypertension, diabetes mellitus, arthritis presented POV with complaining of injury to left elbow. Patient states she tripped over a running rug while walking at her home this morning and fell and injured her left elbow and arm without other injuries or loss of consciousness. Patient rated her pain 8/10 with movement of her arm and denies focal neurodeficit, fever and chills, nausea and vomiting. Onset: just prior to arrival Pain/Injury Location: left arm, left elbow Method of Injury: fell Modifying Factors: Improves With Immobilization Allergies and Home Medications Allergies Coded Allergies: Sulfa (Sulfonamide Antibiotics) (Verified Allergy, Unknown, 08/11/21) cefdinir (Verified Allergy, Unknown, 08/11/21) codeine (Verified Allergy, Unknown, 08/11/21) lactose (Verified Allergy, Unknown, 08/11/21) triamcinolone (Verified Allergy, Unknown, 08/11/21) Patient Home Medication List Home Medication List Reviewed: Yes Fluticasone Propionate (Flonase Allergy Relief) 9.9 Ml [place].susp, 2 SPRAY NS DAILY Prescribed by: JOSIE GERARD on 09/05/212041 Review of Systems Constitutional: see HPI EENTM: see HPI Respiratory: see HPI Cardiovascular: see HPI Gastrointestinal: see HPI Genitourinary: see HPI Musculoskeletal: see HPI Skin: see HPI Psychiatric/Neurological: See HPI All Other Systems Reviewed Negative Unless Noted: Yes Past Dmuyjdh-Pjunaa-Gyrtvj Hx Patient Social History Tobacco Use?: No Use of E-Cig and/or Vaping dev: No Substance use?: No Alcohol Use?: No Pt feels they are or have been: No Immunizations Up To Date First/Initial COVID19 Vaccinat: 12-31 Second COVID19 Vaccination Skinny: 01-31 Third COVID19 Vaccination Date: 08-02 Past Medical History Surgery/Hospitalization HX: HTN; Arthritis; ; Cyst removed from right ear; arthroscopy; Seasonal allergies Surgeries: Yes Section Physical Exam Vital Signs Vital Signs - First Documented 06/03/22 09:26 Temp 36.4 Pulse 70 Resp 18 B/P (MAP) 165/70 (101) Pulse Ox 98 O2 Delivery Room Air Capillary Refill : Less Than 3 Seconds Height, Weight, BMI Height: '" Weight: lbs. oz. kg; 43.00 BMI Method: General Appearance: moderate distress HEENT: PERRL/EOMI, normal ENT inspection Neck: non-tender, full range of motion Cardiovascular: regular rate, rhythm, no edema, no gallop Respiratory: chest non-tender, lungs clear, normal breath sounds, no respiratory distress, no accessory muscle use Gastrointestinal: normal bowel sounds, non tender, soft Back: normal inspection Shoulder: normal inspection, bone tenderness (Distal humerus tenderness), limited ROM Elbow/Forearm: normal inspection, Left, deformity, limited ROM, pain Wrist: Yes normal inspection Hand: normal inspection Neurologic/Tendon: normal sensation, normal motor functions, normal tendon functions, responds to pain Skin: normal color, warm/dry Progress/Results/Core Measures Results/Orders My Orders Orders - PREMA SMITH MD Fentanyl Inj (Sublimaze Injection) (06/03/22 09:45) Humerus 2 View Left (06/03/22 09:35) Medications Given in ED Current Medications Medications Dose Ordered Sig/Geoff Route Start Time Stop Time Status Last Admin Dose Admin Fentanyl Citrate 50 mcg ONCE ONCE IM 06/03/22 09:45 06/03/22 09:46 DC 06/03/22 09:49 50 MCG Vital Signs/I&O 06/03/22 06/03/22 09:26 10:35 Temp 36.4 36.4 Pulse 70 70 Resp 18 18 B/P (MAP) 165/70 (101) 165/70 Pulse Ox 98 98 O2 Delivery Room Air Room Air Blood Pressure Mean: 101 Progress Progress Note : Progress Note Evaluation of patient in ER showed 67-year-old female patient with fall at home and injury to left elbow and arm. Patient had severe tenderness of distal humerus and x-ray showed commuted fracture of distal humerus. Patient treated with fentanyl in ER. Dr. Rooney on-call orthopedic was consulted at 1017 and after reviewing patient x-ray he recommended to apply long-arm splint and shoulder sling and discharge patient home with pain medication and follow-up with Jelani Fuller on Sunday. Splint was applied by [employer] with good cap refill and color of hand after applying splint. Patient felt better after fentanyl IM. Patient and her family informed about test results and plan of care and needs to follow-up and all questions addressed. Diagnostic Imaging Diagonstic Imaging: Xray Comments Left humerus x-ray interpreted by me and showed comminuted fracture of distal humerus. Departure Impression Primary Impression: Closed comminuted fracture of left humerus Qualified Codes: S42.352A - Displaced comminuted fracture of shaft of humerus, left arm, initial encounter for closed fracture Additional Impression: Fall as cause of accidental injury at home as place of occurrence Qualified Codes: W19.XXXD - Unspecified fall, subsequent encounter; Y92.009 - Unspecified place in unspecified non-institutional (private) residence as the place of occurrence of the external cause Disposition: HOME, SELF-CARE Condition: Improved Departure-Patient Inst. Decision time for Depature: 10:45 Referrals: RACHEL DANIEL MD (PCP) Primary Care Physician CONSUELO FULLER Patient Instructions: Upper Arm Fracture ED Add. Discharge Instructions: Follow-up with Dr Rooney nurse practitioner on Sunday Apply ice on the affected area Return to ER as needed Take prescribed hydrocodone as needed for pain All discharge instructions reviewed with patient and/or family. Voiced understanding. PREMA SMITH MD Jun 03, 2022 10:33
[2022-06-03 10:35] VITALS: BP 165/70
--- NOTE | 2022-06-03 10:50 | Diagnostic Imaging Report ---
Indication: Trauma, fall. Time of Exam: 9:49 AM 3 views of the left humerus demonstrate an obliquely oriented fracture through the distal humerus near the junction of the mid and distal 3rd. There is very mild posterior displacement of distal fracture fragment. No angulation is seen. Alignment at the shoulder and elbow is normal. There are degenerative changes at the elbow. Impression: Distal humerus fracture, as described. Dictated by: Dictated on workstation # [id number]
== END 2022-06-03 10:50 | disposition home or self-care (01) ==
LOC: EDUNIT# 09:03 → ER FS 09:06
DX: S42.402A Unspecified fracture of lower end of left humerus, initial encounter for closed fracture (principal); W01.0XXA Fall on same level from slipping, tripping and stumbling without subsequent striking against object, initial encounter; Y93.01 Activity, walking, marching and hiking; Y92.009 Unspecified place in unspecified non-institutional (private) residence as the place of occurrence of the external cause
CPT/HCPCS: 29105; 73060

== ENCOUNTER 2022-06-10 16:12 | Emergency (ER) | payer MEDICARE, OTHER ==
[~2022-06-10] VITALS: Ht 157.5 cm; Wt 108.7 kg
--- NOTE | 2022-06-10 16:31 | ED Upper Extremity ---
General Chief Complaint: Upper Extremity Stated Complaint: LT ARM BRUISING; LT HAND SWELLING History of Present Illness Date Seen by Provider: Jun 10, 2022 Time Seen by Provider: 16:20 Initial Comments 14-year-old female with a left humerus fracture which she states she sustained last week after a fall, and has had an ER visit on Sunday, and also a PCP and Ortho PA visit, is now here again in the ER with complaints of tingling and mild numbness in her left upper extremity in her fingertips, along with swelling and bruising which has increased today. Patient has an Ortho appointment with Dr. ANDRADE at [facility] on June 21. Denies further fall, injury after the initial 1. Allergies and Home Medications Allergies Coded Allergies: Sulfa (Sulfonamide Antibiotics) (Verified Allergy, Unknown, 08/11/21) cefdinir (Verified Allergy, Unknown, 08/11/21) codeine (Verified Allergy, Unknown, 08/11/21) lactose (Verified Allergy, Unknown, 08/11/21) triamcinolone (Verified Allergy, Unknown, 08/11/21) Patient Home Medication List Home Medication List Reviewed: Yes Fluticasone Propionate (Flonase Allergy Relief) 9.9 Ml [place].susp, 2 SPRAY NS DAILY Prescribed by: JOSIE GERARD on 09/05/212041 Review of Systems Constitutional: no symptoms reported EENTM: no symptoms reported Respiratory: no symptoms reported Cardiovascular: no symptoms reported Gastrointestinal: no symptoms reported Genitourinary: no symptoms reported Musculoskeletal: joint swelling Skin: no symptoms reported Psychiatric/Neurological: No Symptoms Reported Past Uakqihq-Rkkqra-Mefqwy Hx Immunizations Up To Date First/Initial COVID19 Vaccinat: 12-31 Second COVID19 Vaccination Skinny: 01-31 Third COVID19 Vaccination Date: 08-02 Past Medical History Surgery/Hospitalization HX: HTN; Arthritis; ; Cyst removed from right ear; arthroscopy; Seasonal allergies Surgeries: Yes Section Physical Exam Vital Signs Vital Signs - First Documented 06/10/22 16:30 Temp 37.0 Pulse 73 Resp 16 B/P (MAP) 148/65 (92) Pulse Ox 95 O2 Delivery Room Air Capillary Refill : Height, Weight, BMI Height: '" Weight: lbs. oz. kg; 43.00 BMI Method: General Appearance: WD/WN, no apparent distress HEENT: PERRL/EOMI Neck: full range of motion Cardiovascular: regular rate, rhythm Respiratory: lungs clear Shoulder: normal inspection, non-tender, no evidence of injury, normal ROM Elbow/Forearm: Left, bone tenderness, ecchymosis, limited ROM, pain, soft tissue tenderness (bruising and swelling seen of left upper extremity. Pulsations good with good capillary refill. ), swelling Wrist: Yes normal inspection Hand: normal inspection (except for swelling), Left Neurologic/Tendon: normal sensation, normal motor functions Neurologic/Psychiatric: alert, oriented x 3 Progress/Results/Core Measures Results/Orders My Orders Orders - GRICELDA CRUZ MD Humerus 2 View Left (06/10/22 17:16) Vital Signs/I&O 06/10/22 16:30 Temp 37.0 Pulse 73 Resp 16 B/P (MAP) 148/65 (92) Pulse Ox 95 O2 Delivery Room Air Progress Progress Note : Progress Note 1. LEFT DISTAL HUMERUS FRACTURE WITH FURTHER DISPLACEMENT: - Repeat XR of left humerus shows increasing displacement -Initially called [facility] and waited a long time for call back, and was eventually told they do not have any beds. Then at pt's preference called [facility] and spoke with Ortho trauma , Dr Britton. Discussed in detail the concerns that pt might be developing very early possible signs of compartment syndrome, and my concern that this is the weekend and would not be able to see ortho until Sunday or after, so would like Observation for ortho consult. Ortho consult via phone discussed unlikely event of compartment syndrome developing in this type of fracture and stated that more displacement is possible since it likely needs surgery.Recommended that pt be discharged and follow up with Ortho and call Sunday morning to ortho clinic for an earlier appointment. - Advised pt that if symptoms worsen, to return to ER - Advised to call ortho clinic for an earlier appointment on Sunday -The patient was seen in the ED, and treated appropriately to presentation at a specific point in time. Patient is informed that there is a possibility that disease and illness can evolve and change in acuity rapidly or slowly after patient is discharged from the ER. Precautionary advice given to the patient for immediate return to ER if symptoms worsen or do not resolve, and to seek emergency care sooner rather than later. Pt also advised on the importance of PCP follow up and compliance with management and follow up plan with PCP and/or specialist, as this is part of the management plan. Pt verbally expressed understanding. Diagnostic Imaging Diagonstic Imaging: Xray Plain Films/CT/US/NM/MRI: other Comments [facility], [place] NAME: ONEIL FARRELL [facility] REC#: [id number] PT STATUS: REG ER : 1955 PHYSICIAN: GRICELDA CRUZ MD ADMIT DATE: 06/10/22/ER FS Draft Date of Exam:06/10/22 HUMERUS 2 VIEW LEFT INDICATION: Fracture. Previous fall. COMPARISON: 06/03/2022. FINDINGS: Two radiographic views of the left humerus were obtained and again demonstrate comminuted fracture of the distal humeral shaft. Since the previous exam, there has been interval progression of displacement of the fracture fragments. There is now moderate displacement of the distal fracture fragment posteriorly and mild displacement laterally. No unexpected radiopaque foreign body is seen. IMPRESSION: Redemonstration of fracture of the distal left humerus. Since the previous exam, there has been development of moderate displacement of the fracture fragments. Dictated on workstation # [id number] Dict: 06/10/221742 Trans: 06/10/221748 [facility] [id number] Interpreted by: GLORIA AMIN MD Electronically signed by: Departure Impression Primary Impression: Displaced fracture of left humerus Disposition: 01 HOME, SELF-CARE Condition: Stable Departure-Patient Inst. Referrals: SELF,RACHEL RHODES (PCP) Primary Care Physician Patient Instructions: Upper Arm Fracture, Upper Arm Fracture ED Add. Discharge Instructions: - Advised pt that if symptoms worsen, to return to ER immediately - Advised to call ortho clinic for an earlier appointment on Sunday All discharge instructions reviewed with patient and/or family. Voiced understanding. GRICELDA CRUZ MD Jun 10, 2022 16:31
--- NOTE | 2022-06-10 17:49 | Diagnostic Imaging Report ---
INDICATION: Fracture. Previous fall. COMPARISON: 06/03/2022. FINDINGS: Two radiographic views of the left humerus were obtained and again demonstrate comminuted fracture of the distal humeral shaft. Since the previous exam, there has been interval progression of displacement of the fracture fragments. There is now moderate displacement of the distal fracture fragment posteriorly and mild displacement laterally. No unexpected radiopaque foreign body is seen. IMPRESSION: Redemonstration of fracture of the distal left humerus. Since the previous exam, there has been development of moderate displacement of the fracture fragments. Dictated by: Dictated on workstation # [id number]
[2022-06-10 18:50] VITALS: BP 134/69
== END 2022-06-10 19:08 | disposition home or self-care (01) ==
LOC: EDUNIT# 16:12 → ER FS 16:16
DX: S42.402A Unspecified fracture of lower end of left humerus, initial encounter for closed fracture (principal); W19.XXXA Unspecified fall, initial encounter
CPT/HCPCS: 73060